=== PATIENT | female | born 1930 | race Caucasian/White ===

== ENCOUNTER 2016-11-14 04:16 | Inpatient (IN) | payer MEDICARE ==
[2016-11-14] VITALS (12 sets, daily range): BP systolic 106–157; BP diastolic 57–76; PULSE 66–78; RESP 18–20; O2SAT 88–96
[~2016-11-14] VITALS: Ht 167.6 cm; Wt 79.3 kg
[~2016-11-14 04:16] MED LIST: ASCO100089 PO; ATOR80TA PO; BLAC160C PO; CALC-243 PO; DABI110C PO; DULO30CA50 PO; EPIN0.3P2 IJ; ESOM40CA41 PO; GABA100C PO; INSU100I25 SQ; ISOS60TA2 PO; LISI-571 PO; METF1000 PO; METO50TA3 PO; MULT-1018 PO; NITR0.4T SL
--- NOTE | 2016-11-14 04:22 | ED.REPORT ---
HPI-Chest Pain 40 and Over Date of Service Nov 14, 2016 ED Provider: Kenny Braga MD Patient is a 86 year old female with a history of diabetes mellitus, hypertension, hyperlipidemia, prior CVA and coronary artery disease with prior MD, CABG 2x, and recent cardiac stent who presents to the ED via EMS after she awoke from sleep this morning with severe chest pain. The patient states that she took 4x nitroglycerin after onset of symptoms, which did not immediately improve her pain. The patient states that her chest pain waxed and waned, radiating to her back below her left shoulder. She describes her pain as a dull ache. Patient is a poor historian, one moment stating that it is "as if nothing ever happened" and the next complaining about ongoing back pain. Per patient she had a cardiac sent placed at [facility] 6 weeks ago. Her banking services officer is Dr. Malone, who she states referred her to [facility] to have the procedure done. Patient is on Pradaxa for anticoagulation. She denies any other symptoms at that time. Nursing Notes Stated Complaint: CHEST PAIN Chief Complaint: Chest Pain Nursing Notes Reviewed: Yes Allergies: Coded Allergies: pregabalin (Verified Allergy, Severe, facial swelling, 06/08/16) propranolol (Verified Allergy, Severe, SWELLING, 06/08/16) Penicillins (Verified Allergy, Intermediate, HIVES, 06/08/16) ezetimibe (Verified Allergy, Intermediate, MUSCLE ACHES, 06/08/16) simvastatin (Verified Allergy, Intermediate, MUSCULAR PAIN, 06/08/16) venom-honey bee (Verified Allergy, Unknown, 06/08/16) Scheduled Ascorbic Acid (Vitamin C) 1,000 Mg Tab.chew 1,000 MG PO DAILY Atorvastatin (Lipitor) 80 Mg Tablet 80 MG PO QPM Black Cohosh Root Extract (Black Cohosh) 160 Mg Capsule 40 MG PO DAILY Calcium Carbonate/Vitamin D3 (Calcium 600 + Vit D Tablet) 1 Each Tablet 2 EACH PO DAILY Dabigatran Etexilate Mesylate (Pradaxa) 110 Mg Capsule 220 MG PO DAILY Duloxetine (Duloxetine) 30 Mg Capsule.dr 30 MG PO DAILY Esomeprazole Magnesium (Nexium) 40 Mg Capsule.dr 40 MG PO DAILY Gabapentin (Neurontin) 100 Mg Capsule 100 MG PO BID Insulin Detemir (Levemir Flextouch) 100 Unit/1 Ml Insuln.pen 52-58 UNIT SQ HS Isosorbide MN ER (Isosorbide MN ER) 60 Mg Tab.er.24h 60 MG PO QAM Lisinopril (Lisinopril) 5 Mg Tablet 5 MG PO DAILY Metformin (Glucophage) 1,000 Mg Tablet 1,000 MG PO BID Metoprolol Tartrate (Metoprolol Tartrate) 50 Mg Tablet 100 MG PO BIDWM Multivitamin (Multi Vitamin Daily) 1 Each Tablet 1 EACH PO DAILY Nitroglycerin SL (Nitrostat) 0.4 Mg Tab.subl 0.4 MG SL Q5MIN Miscellaneous Medications Epinephrine (Epipen 2-Nile) 0.3 Mg/0.3 Ml Auto.injct 0.3 MG IJ General Time Seen by MD: 04:17 Chief Complaint Chest pain Hx Obtained From: Patient Unable to Obtain Hx: Patient condition (limited, patient is a poor historian) Arrived By: Ambulance Sudden in Onset?: No Onset Occurred: Just prior to arrival Symptom Duration: Since onset Location: : Chest left: Chest right Quality: Painful Radiation: : Back Severity: Current: No pain currently Severity: Maximum: Severe Recent Healthcare: No recent doctor visit, No recent hospitalization Similar Sx Previous: Yes Past Medical History Past Medical History paroxysmal atrial fibrillation Heart murmur due to critical aortic stenosis myocardial infarction cataracts dysphagia neuropathy Reports: Coronary artery disease, Diabetes mellitus, Hyperlipidemia, Hypertension, Stroke (stroke 1990- residual weakness on left) Reports: Depression Past Surgical History Right nephrectomy Aortic valve replacement CABG x2 Nephrectomy abdominal tumor removal cardiac stent ([facility], Sep 2016) Bilateral iliac angioplasty and bilateral iliac stenting. cardiac catheterization right knee surgery Reports: Hysterectomy Smoking History Former Smoker Social History Other Social History: Good social support, Local resident Ambulatory Status Independent Review of Systems Unable to Obtain ROS Patient condition (limited, patient is a poor historian) Cardiovascular: Reports: Chest pain, Denies: Palpitations Musculoskeletal: Reports: Back pain, Denies: Extremity pain Physical Exam Initial Vital Signs Vital Signs (First) Date Time Temp Pulse Resp B/P Pulse Ox O2 Delivery O2 Flow Rate FiO2 11/14/16 04:17 36.7 74 18 128/63 95 Room Air Initial VS: Reviewed, Vital signs normal Head / Eyes: Atraumatic, Normocephalic, PERRL ENT: Conjunctiva normal, No scleral icterus Skin: Warm, Dry, No cyanosis Neurologic: Alert, Oriented, Nonfocal Psychiatric: Mood/affect normal, Behavior normal, Normal thought content General/Constitutional: Awake, Alert, No acute distress Respiratory / Chest: Breath sounds NL, Breath sounds = bilat, No respiratory distress, No rales, No rhonchi, No wheezing Cardiovascular: Heart rate NL, Regular rhythm Heart Sounds / Murmur: Positive: Murmur present... (III/, holosystolic), Murmur shape... (Crescendo-decrescendo) Abdomen: Soft, Non-tender, No guarding, No rebound Neck: Supple, No JVD Lower Extremity / Pelvis / MS: No swelling, No edema Upper Extremity / MS: No swelling, No edema Interpretation & Diagnostics Lab Results Interpretation Result Diagram: 11/14/16 0420 11/14/16 0420 Test 11/14/16 04:20 White Blood Count 4.3th/mm3 (3.8-10.1) Red Blood Count 3.54mil/mm3 (3.90-5.20) Hemoglobin 11.8g/dL (12.0-15.6) Hematocrit 35.7% (35.0-46.0) Mean Corpuscular Volume 100.8fL (81-100) Mean Corpuscular Hemoglobin 33.3pg (27.0-35.0) Mean Corpuscular Hemoglobin Concent 33.1% (32.0-37.0) Red Cell Distribution Width 16.0% (12.3-15.4) Platelet Count 114bil/L (150-400) Neutrophils (%) (Auto) 49.9% (40-74) Lymphocytes (%) (Auto) 33.8% (14-46) Monocytes (%) (Auto) 15.4% (4-12) Eosinophils (%) (Auto) 0.7% (0-5) Basophils (%) (Auto) 0.2% (0-3) Activated Partial Thromboplast Time 38.3sec (22.8-33.0) Sodium Level 139mEq/L (134-144) Potassium Level 4.9mEq/L (3.5-5.2) Chloride Level 103mEq/L (97-108) Carbon Dioxide Level 21mmol/L (18-29) Blood Urea Nitrogen 22mg/dL (8-27) Creatinine 0.67mg/dL (0.57-1.00) Estimat Glomerular Filtration Rate 120mL/min (>59) Glucose Level 194mg/dL (60-99) Calcium Level 9.3mg/dL (8.5-10.1) Magnesium Level 1.4mg/dL (1.6-2.6) Total Bilirubin 0.7mg/dL (0.0-1.2) Aspartate Amino Transf (AST/SGOT) 21U/L (0-50) Alanine Aminotransferase (ALT/SGPT) 18U/L (0-32) Alkaline Phosphatase 48U/L (25-165) Troponin T 0.229ug/L (0.0-0.011) Total Protein 7.5g/dL (6.4-8.4) Albumin 4.5g/dL (3.4-5.0) Lab Results Interpretation: Related nonfasting blood sugar ECG Interpretation ECG Interpretation: Sinus rhythm, Rate 66 Consider left ventricular hypertrophy Time: 04:35 Interpreted by: ED physician Normal ECG Interpretation: No acute ischemic changes ECG Interpretation: Normal Sinus Rhythm, Rate 66 Time: 05:30 Interpreted by: ED physician X-Ray Chest Interpretation Chest Xray Interpretation: Impression: No acute cardiopulmonary process. View: Portable Interpretation / Wet Read by: Wet read ED physician Reviewed Previous Films: No change Re-Eval/Medical Decision Med Decision/Clinical Course 86-year-old with known coronary artery disease and previous stents presents with intermittent chest pain over the last 8 hours. The most recent episode started about 2 hours ago. It was relieved with nitroglycerin. EKG is negative 2. Her troponin is elevated at 0.229. She was given a heparin bolus and started on heparin drip. She was given an inch of nitroglycerin paste. Metoprolol was not used because of a previous allergic reaction to propranolol. Plavix was held pending cardiology consult because she was told not to take it by Dr. Coffman. Dr. Finley, banking services officer, but has yet to return the call. Her case was discussed with Dr. Rivera and she will be admitted to the hospitalist service. Dr. Stewart, oncoming ER physician, will talk to Dr. Guillen when he calls concerning beta blockers, Plavix, and admission consultations/cardiac catheterization. Source of Hx: Old records Time of Eval: 05:22 Patient Status: Condition improved Re-Evaluation/Progress Note: Rechecked the patient. She had a brief episode of chest while in the ED, which was improved by additional nitro. She is now pain free. Informed the patient of the elevated troponin and the need for her to be admitted to the hospital for additional care. Patient understands and agrees with this plan. All questions were addressed. Consultation #1: Referral / Consult Name: Franco Rivera MD Consulted With: Hospitalist Call Returned at: 05:34 Sales Account Manager: Will see patient, Agrees with eval, Agrees with plan, Accepts admit Note: Spoke with Dr. Rivera, hospitalist, who agrees to accept admit. Consultation #2: Referral / Consult Name: Blaise Finley MD Consulted With: Training Development Specialist: Agrees with eval, Agrees with plan Counseled Regarding: Diagnosis, Lab results, Need for admission Discharge & Departure Primary Impression: NSTEMI (non-ST elevated myocardial infarction) Additional Impression: Elevated troponin Disposition: ADMITTED TO HOSPITAL Discharge Condition All VS Reviewed: Yes Condition: Stable Referrals: Swathi Rangel (PCP) (Family) Crit Care Except Billable Proc Time Spent: 30-74 minutes Services Performed: Patient management by me, Time spent at bedside, Reviewing test results, Reviewing imaging, Discussing patient care, Documentation in record Critical Care Notes: One-on-one bedside care the patient with evolving MD started on multiple IV medications and admitted to PCC. Sunshineibnidia Attestation Portions of this note were transcribed by Justine Ramirez. I, Dr. Braga personally performed the history, physical exam and medical decision-making; I reviewed and confirmed the accuracy of the information in the transcribed note. Signed by: Anjana Yeager, 11/14/2016 0604 copies to: Swathi Rangel Howard L MD Nov 14, 2016 04:22 Justine Ramirez Nov 14, 2016 04:28
[2016-11-14 04:37] LABS: BASOPHILS % (AUTO) 0.2 % (0-3); EOSINOPHILS % (AUTO) 0.7 % (0-5); MONOCYTES % (AUTO) 15.4 % (4-12); Mean Corpuscular Hemoglobin 33.3 pg (27.0-35.0); Mean Corpuscular Volume 100.8 fL (81-100); NEUTROPHILS % (AUTO) 49.9 % (40-74); Platelet Count 114 bil/L (150-400)
[2016-11-14 05:01] LABS: Magnesium 1.4 mg/dL (1.6-2.6)
[2016-11-14 05:02] LABS: TROPONIN T 0.229 ug/L (0.0-0.011)
[2016-11-14] MEDS ORDERED: Heparin 25K Unit/500mL 0.45 NS 25,000 UNIT in IV Premix 1 EACH IV ONE (05:20)
[2016-11-14] MEDS ORDERED: Heparin 5,000 Unit/mL Inj IVPUSH ONE (05:20)
[2016-11-14] MEDS ORDERED: Nitroglycerin 2% 1 Gm Ointment TOPICAL ONE (05:20)
[2016-11-14] MEDS ORDERED: 0.9% Sodium Chloride 1,000 ML IV SCH (05:37)
[2016-11-14] MEDS ORDERED: Atropine 1 mg/10 mL (Code) Syringe IVPUSH PRN ×2 (05:40→06:15)
[2016-11-14] MEDS ORDERED: Senna-Docusate 8.6-50 mg Tablet PO PRN ×2 (05:40→06:15)
[2016-11-14] MEDS ORDERED: Polyethylene Glycol (PEG) 17 Gm Powder PO PRN ×2 (05:40→06:15)
[2016-11-14] MEDS ORDERED: Heparin 25K Unit/500mL 0.45 NS 25,000 UNIT in IV Premix 1 EACH IV SCH ×2 (05:40→06:15)
[2016-11-14] MEDS ORDERED: Alum-Mag Hydrox-Simeth 30 mL Suspension PO PRN ×2 (05:40→06:15)
[2016-11-14] MEDS ORDERED: Ondansetron 2 mg/mL 2 mL Inj IVPUSH PRN ×2 (05:40→06:15)
[2016-11-14] MEDS ORDERED: Glucose 40% Oral Gel 15 Gm Tube PO PRN ×2 (05:45→06:15)
--- NOTE | 2016-11-14 05:47 | PCM.HPMED ---
Subjective Date of Service Nov 14, 2016 Primary Provider: Admitting Physician: Primary Care Physician: Swathi Rangel Attending Physician: Admit Status: From the Emergency Department, Full Admit, [facility] Telemetry Chief Complaint: Acute chest pain History of Present Illness: Marie Bailey is a 86 year old female with Diabetes mellitus, hypertension, hyperlipidemia, prior CVA and coronary artery disease with prior MA, CABG 2x, and recent cardiac stent who presents to [facility] emergency department via EMS after she awoke from sleep this morning with severe chest pain. The patient states that she took 4x nitroglycerin after onset of symptoms, which did not immediately improve her pain. The patient states that her chest pain waxed and waned, radiating to her back below her left shoulder. She describes her pain as a dull ache. Associated symptoms includes mild nausea, diaphoresis and mild dyspnea. Similar to her previous chest pain with his heart attacks Patient states that she had a cardiac sent placed at [facility] weeks ago. She has been compliant with her medications. She felt fine after the procedure but felt sick again for the last 2 days Case discussed with Dr Braga, troponin elevated and Heparin drip initiated with plans to admit Review of Systems: Pertinent positives as noted in HPI. All other systems were reviewed and are negative Allergies Coded Allergies: pregabalin (Verified Allergy, Severe, facial swelling, 06/08/16) propranolol (Verified Allergy, Severe, SWELLING, 06/08/16) Penicillins (Verified Allergy, Intermediate, HIVES, 06/08/16) ezetimibe (Verified Allergy, Intermediate, MUSCLE ACHES, 06/08/16) simvastatin (Verified Allergy, Intermediate, MUSCULAR PAIN, 06/08/16) venom-honey bee (Verified Allergy, Unknown, 06/08/16) Home Medications From Marie Rodas [id number] 1930 10/31/2016 10:20 AM 09/[address] 30 MG CAP take 1 capsule by mouth daily EpiPen 2-Nile 0.3 mg/0.3 mL (1:1,000) injection,auto-injector inject 0.3 milliliter by intramuscular route once as needed for anaphylaxis Eye Drops instill one drop in each eye by opthalmic route once daily Levemir Flexpen 100 unit/mL (3 mL) solution subcutaneous insulin pen INJECT 52- 58 UNITS SUB-Q AT NIGHT Lipitor 40 mg tablet take 0.5 tablet by oral route every day lisinopril 5 mg tablet take 1 tablet by oral route every day METFORMIN HCL 1,000 MG TABLET take 1 tablet by mouth twice a day in THE MORNING AND EVENING for diabetes metoprolol tartrate 50 mg tablet take 2 tablet by oral route 2 times every day with meals multivitamin with minerals Cap 1 tablet daily Neurontin 300 mg capsule take 1 capsule by mouth 2 times a day Nexium 40 mg capsule,delayed release take 1 capsule by oral route as needed Pradaxa 150 mg capsule take 1 capsule by oral route 2 times every day PMH Paroxysmal atrial fibrillation Postherpetic neuralgia Hyperlipidemia Age related macular degeneration Hypertension Diabetes type with peripheral neuropathy Aortic Valve Stenosis S/P AVR (aortic valve replacement) Coronary disease s/p CABG Stroke . Surgical History Total Hysterectomy Right nephrectomy CABG x 3 right wrist surgery Aortic valve replacement Family History Family history of Diabetes Social History Hx Alcohol Use: No Hx Substance Use: No Hx Tobacco Use: Yes Smoking Status: Former Smoker Living Arrangement: with Family Exam Vital Signs Vital Sign - Last Date Time Temp Pulse Resp B/P Pulse Ox O2 Delivery O2 Flow Rate FiO2 11/14/16 05:00 69 18 140/66 95 Room Air 11/14/16 04:17 36.7 Exam General: Alert, Oriented X3, Cooperative, No acute Distress Eyes: PERRLA, Scleral Anicteric Mouth: Mouth Normal, Mucous Membranes Moist/[place] Neck: Supple, no Thyromegaly, trachea central. Chest & Lungs: Clear to auscultation & percussion, No adventitious breath sounds, no crackles, no wheeze Cardiovascular: Normal S1, Normal S2, No Rubs/Gallops, Regular Rate/Rhythm, loud systolic Murmur (No JVD, no peripheral edema) Pulses: Radial (present and equal), Dorsalis Pedi (present and equal) Abdomen: Soft, Non-tender, Non-distended, Normoactive bowel tones. Musculoskeletal: Unremarkable. Normal range of motion, no swollen or erythematous joints Extremities: No edema, no cyanosis, no clubbing. Skin: No rashes. Warm and dry, no erythematous areas Neurological: Grossly neurologically intact, Normal Speech, Sensation Intact Lymphatic: Lymph nodes Cervical and Axillary not palpable. Lab and Diagnostics Labs Laboratory Tests Test 11/14/16 04:20 White Blood Count 4.3th/mm3 (3.8-10.1) Red Blood Count 3.54mil/mm3 (3.90-5.20) Hemoglobin 11.8g/dL (12.0-15.6) Hematocrit 35.7% (35.0-46.0) Mean Corpuscular Volume 100.8fL (81-100) Mean Corpuscular Hemoglobin 33.3pg (27.0-35.0) Mean Corpuscular Hemoglobin Concent 33.1% (32.0-37.0) Red Cell Distribution Width 16.0% (12.3-15.4) Platelet Count 114bil/L (150-400) Neutrophils (%) (Auto) 49.9% (40-74) Lymphocytes (%) (Auto) 33.8% (14-46) Monocytes (%) (Auto) 15.4% (4-12) Eosinophils (%) (Auto) 0.7% (0-5) Basophils (%) (Auto) 0.2% (0-3) Activated Partial Thromboplast Time 38.3sec (22.8-33.0) Sodium Level 139mEq/L (134-144) Potassium Level 4.9mEq/L (3.5-5.2) Chloride Level 103mEq/L (97-108) Carbon Dioxide Level 21mmol/L (18-29) Blood Urea Nitrogen 22mg/dL (8-27) Creatinine 0.67mg/dL (0.57-1.00) Estimat Glomerular Filtration Rate 120mL/min (>59) Glucose Level 194mg/dL (60-99) Calcium Level 9.3mg/dL (8.5-10.1) Magnesium Level 1.4mg/dL (1.6-2.6) Total Bilirubin 0.7mg/dL (0.0-1.2) Aspartate Amino Transf (AST/SGOT) 21U/L (0-50) Alanine Aminotransferase (ALT/SGPT) 18U/L (0-32) Alkaline Phosphatase 48U/L (25-165) Troponin T 0.229ug/L (0.0-0.011) Total Protein 7.5g/dL (6.4-8.4) Albumin 4.5g/dL (3.4-5.0) Result Diagram: 11/14/1641911/14/16419 Assessment & Plan Marie Bailey is a 86 year old female with Diabetes mellitus, hypertension, hyperlipidemia, prior CVA and coronary artery disease with prior MA, CABG 2x, and recent cardiac stent who presents to [facility] emergency department via EMS after she awoke from sleep this morning with severe chest pain. 1. Non ST Elevation Myocardial infarction. Present on admission Recent stent placement therefore stent stenosis is a concern. Several risk factors for Acute coronary syndrome with previous MA and CABG as well as stenting. - monitor on telemetry - anticoagulation with Heparin drip - trending cardiac biomarkers - nothing by mouth - continue Aspirin for antiplatelet therapy - Cardiology consulted (Dr Braga will be contacting them) - may need cardiac cath given recent stent placement - continue Metoprolol and Statin 2. Diabetes Type 2 Presumed stable with no recent A1c - low correction Lispro algorithm - will plan to half dose of long actin insulin while NPO - holding Metformin - continue Gabapentin 300 mg bid 3. Hypertension Presumed stable - continue Lisinopril and Metoprolol 4. Paroxysmal Atrial fibrillation Previous stroke - good rate control currently - on Pradaxa which will be hold while in Heparin drip 5. Dyslipidemia - continue Lipitor 40 mg daily - Acetaminophen as needed for mild pain/fever/headache - Bowel regimen as needed - Antiemetic as needed Patient admitted under inpatient status with expected length of stay > 2 midnights for severity of present symptoms, complexities of treatment plan and risk for adverse event . Resuscitation Status: CPR: Attempt Resuscitation Franco Rivera MD Nov 14, 2016 05:46
--- NOTE | 2016-11-14 06:10 | NUR ---
Admission Pt transferred from ED via stretcher. Pt alert and orientated x3. IV in left hand patent and infusing. Pt complaining of 5/10 chest discomfort. Given nitroglycerine in the ED. Pt had no other concerns.
[2016-11-14] MEDS: 0.9% Sodium Chloride 1,000 ML IV SCH ×2 (07:59→19:36)
[2016-11-14] MEDS ORDERED: Insulin LISPRO 300 Unit/3 mL Inj SUBQ SCH (08:00)
[2016-11-14] MEDS: Insulin LISPRO 300 Unit/3 mL Inj SUBQ SCH ×4 (08:00→20:03)
[2016-11-14] MEDS: Sodium Chloride LOK Flush 10 mL Syringe IVFLUSH SCH ×2 (08:30→16:30)
[2016-11-14] MEDS ORDERED: Sodium Chloride LOK Flush 10 mL Syringe IVFLUSH SCH (08:30)
--- NOTE | 2016-11-14 08:47 | NUR ---
Pt arrived to [facility] from ER ~0600. C/O 12/17 left sided chest pain with radiation to back. Pt also has left anterior chest pain that worsens with palpation. NTG SL administered x1 with relief. NTP is also present anterior chest. Heparin and NS infusing via left hand PIV. VSS. Admission complete. Wallet and check book sent to safe.
--- NOTE | 2016-11-14 08:49 | DRSVH ---
PROCEDURE: X-RAY CHEST ONE VIEW, PORTABLE ([id number]) INDICATIONS: CHEST PAIN TECHNIQUE: One view of the chest was acquired. COMPARISON: [facility], CR, XR CHEST 1VW (PORTABLE), 04/10/2016, 0:16. FINDINGS: Surgical changes and devices: Post median sternotomy and there is fracture of the proximal sternal wi re. Lungs and pleura: No pleural effusions or pneumothorax. Lungs are clear, aside from mild atelectasi s or scarring at the left lung base. Mediastinum: Mediastinal contours appear normal. Heart size is normal. Bones and chest wall: No suspicious bony lesions. Overlying soft tissues appear unremarkable. IMPRESSION: Atelectasis versus scarring involving the left lung base otherwise no acute cardiopulmona ry process. Dictated by: Kirk Gonzalez [facility] Interpreted: Jillian Jerry MD on 11/14/2016 at 8:45 Transcribed by: CASI on 11/14/2016 at 8:49 Approved by: Jillian Jerry M.D. on 11/14/2016 at 11:48
--- NOTE | 2016-11-14 09:00 | NUR ---
Pt does not have her glasses with her and would appreciate verbal instructions for now. Host assist diet choices when able to eat.
[2016-11-14 09:27] LABS: Creatine Kinase 53 U/L (21-215)
--- NOTE | 2016-11-14 10:30 | NUR ---
Chest pain Earlier this morning she was complaining about 4/10 chest pain. A nitroglycerin tablet was given to her along with 1 tablet of Tylenol. Upon reassessment she said that her chest pain was gone. Care continues.
[2016-11-14 11:10] LABS: APPEARANCE,URINE HAZY (CLEAR,HAZY); COLOR,URINE STRAW (YELLOW); OCCULT BLOOD,URINE NEGATIVE (NEGATIVE); PH,URINE 6.5 (5.0-8.0); UROBILINOGEN,URINE NORMAL (NORMAL)
[2016-11-14 12:07] LABS: TROPONIN T 0.239 ug/L (0.0-0.011)
[2016-11-14] MEDS ORDERED: Magnesium Sulfate 50% Inj 3 GM in Dextrose 5% 100 ML IV ONE (12:25)
--- NOTE | 2016-11-14 15:03 | DRSVH ---
Formerly [facility] [address] [place] [address] Echocardiogram Report Name: LEONARDO ZUNIGA Study Date: 11/14/2016 Height: 66 in Hospital Exam Location: [facility] Weight: 178 lb Gender: Female BSA: 1.9 m2 : 1930 Age: 86 yrs BP: 142/69 mmHg Reason For Study: Chest pain Ordering Physician: HOSPITALIST [facility] Performed By: Justus Dallas Referring Physician: RAJAN ALICIA Interpretation Summary 1) Mild concentric left ventricular hypertrophy with normal size, wall motion, and systolic function (EF 65-70%). 2) Borderline dilated right ventricle with normal function. 3) Severe enlargement of the left atrium. 4) Grade 2 diastolic dysfunction (pseudonormalization) pattern, consistent with elevated filling pressures. 5) Bioprosthetic aortic valve, not well visualized. Mean transvalvular gradient is 22mmHG, which is expected for this kind of valve. 6) Mild atherosclerotic plaque(s) in the descending aorta. 7) Compared to the Echo 04/10/2016, severe stenosis aortic valve has been replaced by a bioprosthetic aortic valve as described above. Procedure: A two-dimensional transthoracic echocardiogram with color flow and Doppler was performed. The study quality was technically adequate. Comparison is made with the echocardiogram of 04/10/16. The patient was in normal sinus rhythm during the exam. Left Ventricle: The left ventricle is normal in size. There is mild concentric left ventricular hypertrophy. Proximal septal thickening is noted. The ejection fraction is estimated to be 65-70%. Left ventricular systolic function is normal. There are no focal wall motion abnormalities. Assessment of diastolic parameters suggests a pseudonormalization pattern, consistent with elevated filling pressures. Right Ventricle: The right ventricle is borderline dilated. The right ventricular systolic function is normal. Atria: The left atrium is severely dilated. Right atrial size is normal. The interatrial septum is intact with no evidence for an atrial septal defect. Mitral Valve: The mitral valve leaflets appear borderline thickened, but open well. There is mild mitral annular calcification. There is mild mitral regurgitation. Aortic Valve: There is a bioprosthetic aortic valve. The peak aortic velocity is 3.0 m/sec. The aortic valve mean gradient is 22 mmHg. This is likely an underestimate given peak velocity and mean gradient on prior echo. Tricuspid Valve: The tricuspid valve is normal. There is mild tricuspid regurgitation. The right ventricular systolic pressure is estimated at 39 mmHg assuming a right atrial pressure of 3 mm Hg. Pulmonic Valve: The pulmonic valve leaflets are thin and pliable; valve motion is normal. There is a trace or physiologic amount of pulmonic regurgitation. Great Vessels: The aortic root is not well visualized. The ascending aorta could not be visualized. The aortic arch is normal in size. Mild atherosclerotic plaque(s) in the descending aorta. The pulmonary artery is normal size. The IVC is of normal diameter and collapses greater than 50% with a sniff. This suggests a low right atrial pressure of 3 mm Hg. Pericardium/ Pleura There is no pericardial effusion. There is no pleural effusion. MMode/2D Measurements & Calculations LVIDd: 4.4 cm RA long axis Ao Arch Diam (Prox LVIDs: 2.1 cm LA A2 area: 24.5 cm Trans): 2.5 cm FS: 52.2 % LA A4 area: 25.9 cm RA area EPSS: 0.52 cm LA length (vol) IVSd: 1.1 cm : 11.8 cm LVPWd: 1.1 cm LA vol: 91.3 ml RA vol LA vol index : 26.9 ml RA : 48.0 ml/m2 : 14.1 mm2 LV sloan. diameter/BSA LV sys. diameter/BSA RVD1 (basal) TAPSE: 1.9 cm (cm/m^2): 2.3 (cm/m^2): 1.1 Doppler Measurements & Calculations Ao V2 max MV E max farhat MV E/A: 0.96 TR max farhat : 303.5 cm/sec : 109.0 cm/sec Med Peak E' Farhat : 298.7 cm/sec Ao max PG MV A max farhat TR max PG : 36.8 mmHg : 113.3 cm/sec E/E' med: 31.4 : 35.7 mmHg Ao mean PG Lat Peak E' Farhat PA V2 max : 21.5 mmHg : 93.2 cm/sec LVOT Max Farhat E/E' lat: 26.6 PA mean PG : 126.4 cm/sec E/e' average: 29.0 : 1.8 mmHg sev ratio: 0.41 MV dec time Ao V2 mean LV V1 max PG PA V2 mean : 0.30 sec : 223.2 cm/sec : 63.4 cm/sec Ao V2 VTI: 69.5 cm LV V1 VTI: 28.7 cm PA pr(Accel) : 44.7 mmHg Reading Physician:03:02 PM
[2016-11-15] MEDS: Sodium Chloride LOK Flush 10 mL Syringe IVFLUSH SCH ×2 (00:57→10:34)
[2016-11-15 03:00] VITALS: BP 156/80; PULSE 72; RESP 20; O2SAT 93
--- NOTE | 2016-11-15 04:47 | NUR ---
Ambulation Pt independent in the room. Able to walk to and from the bathroom and position self in bed without issue.
[2016-11-15 05:38] LABS: BASOPHILS % (AUTO) 0 % (0-3); EOSINOPHILS % (AUTO) 1.4 % (0-5); MONOCYTES % (AUTO) 18.6 % (4-12); Mean Corpuscular Hemoglobin 33.7 pg (27.0-35.0); Mean Corpuscular Volume 101.5 fL (81-100); NEUTROPHILS % (AUTO) 40.4 % (40-74); Platelet Count 93 bil/L (150-400)
[2016-11-15 06:17] VITALS: PULSE 80
[2016-11-15 08:00] VITALS: PULSE 78
[2016-11-15 08:19] VITALS: BP 153/75; PULSE 76; RESP 16; O2SAT 90
[2016-11-15] MEDS: Insulin LISPRO 300 Unit/3 mL Inj SUBQ SCH (09:00)
--- NOTE | 2016-11-15 09:19 | PCM.CHPCAR ---
Consult Subjective Date of service Nov 15, 2016 Date of admit Nov 14, 2016 at 06:19 Provider Requesting Consult Primary Care Physician Primary Care Physician: Swathi Rangel Chief Complaint Chest pain History of Present Illness Mrs Bailey is an 86-year-old woman with history of CAD status post CABG 2 (TOLLIVER to LAD, SVG to RCA 1996, redo CABG with aVR 2005 SVG to circumflex OM and LAD), tissue aortic valve replacement with recent (August 2016) valve and valve TAVR. Summary from discharge in August states grafts were patent. CVA, hyperlipidemia, hypertension, diabetes, paroxysmal atrial fibrillation, peripheral vascular disease with stenting of bilateral iliac arteries. Patient claims she had been feeling reasonably well until a few days ago where she had an episode of some chest pain while working in her garage. She rested and symptoms improved. Yesterday while resting she claims she just did not feel well. She woke up with 8-910 dull left parasternal chest pain with radiation to her scapula and left shoulder. She had mild dyspnea, and dizziness. She took nitroglycerin sublingually 3 without relief of symptoms and called a neighbor. Ambulance brought her to the hospital. She claims since admission he has not had any additional pain. She denies shortness of breath and lightheadedness dizziness or palpitations at this time. Claims she did not sleep well last night and would prefer to go home to sleep in her own bed. Review of Systems Review of Systems #General- patient has some fatigue, denies significant weight changes. Appetite is generally good. #HEENT- benign #Neck- patient feels "tickle in throat, denies swollen glands. #Chest- denies current dyspnea, chest wall pain. #Cardiovascular- no chest pain while she has been on the floor of the hospital. Denies palpitations. She admits to orthopnea at home without PND. She denies ankle edema or abdominal bloating. #Abdominal- denies abdominal pain, melena hematochezia, constipation or diarrhea. #-denies urgency or frequency, dysuria, vaginal symptoms #Neurologic- patient has weakness in her upper extremities and complains of numbness in her hands and feet. #Endocrine- positive history of diabetes on insulin and metformin, greatest in stable per patient no known thyroid disease. #Musculoskeletal- positive for joint aches and pains negative for swelling or redness #Psychiatric- denies current concerns #Integument -denies rash or lesion PMH Past Medical History CAD with CABG, TOLLIVER to LAD SVG to RCA 1996. Redo CABG with aVR 2005 with SVG to circumflex OM plus LAD. CVA 1996 Hyperlipidemia Hypertension Diabetes mellitus Paroxysmal AF Peripheral artery disease Aortic stenosis- Past Surgical History CABG 1996 with revision 2006 Bilateral iliac stents August 2016 Aortic valve replacement with recent valve and valve TAVR August 2016 at [facility] Right nephrectomy, benign S Total hysterectomy Bedside Blood Glucose: 256 Scheduled Ascorbic Acid (Vitamin C) 1,000 Mg Tab.chew 1,000 MG PO DAILY (Reported) Atorvastatin (Lipitor) 80 Mg Tablet 80 MG PO QPM (Reported) Black Cohosh Root Extract (Black Cohosh) 160 Mg Capsule 40 MG PO DAILY (Reported ) Calcium Carbonate/Vitamin D3 (Calcium 600 + Vit D Tablet) 1 Each Tablet 2 EACH PO DAILY (Reported) Dabigatran Etexilate Mesylate (Pradaxa) 110 Mg Capsule 220 MG PO DAILY (Reported ) Duloxetine (Duloxetine) 30 Mg Capsule.dr 30 MG PO DAILY (Reported) Esomeprazole Magnesium (Nexium) 40 Mg Capsule.dr 40 MG PO DAILY (Reported) Gabapentin (Neurontin) 100 Mg Capsule 100 MG PO BID (Reported) Insulin Detemir (Levemir Flextouch) 100 Unit/1 Ml Insuln.pen 52-58 UNIT SQ HS ( Reported) Isosorbide MN ER (Isosorbide MN ER) 60 Mg Tab.er.24h 60 MG PO QAM (Reported) Lisinopril (Lisinopril) 5 Mg Tablet 5 MG PO DAILY (Reported) Metformin (Glucophage) 1,000 Mg Tablet 1,000 MG PO BID (Reported) Metoprolol Tartrate (Metoprolol Tartrate) 50 Mg Tablet 50 MG PO BIDWM (Reported ) Multivitamin (Multi Vitamin Daily) 1 Each Tablet 1 EACH PO DAILY (Reported) Nitroglycerin SL (Nitrostat) 0.4 Mg Tab.subl 0.4 MG SL Q5MIN (Reported) Miscellaneous Medications Epinephrine (Epipen 2-Nile) 0.3 Mg/0.3 Ml Auto.injct 0.3 MG IJ (Reported) Current Inpatient Medications Current Medications Sodium Chloride 10 ml 10 ml GÓMEZ IVFLUSH; Start 11/14/16 at 08:30; Stop 11/14/16 at 08:30; Status DC Sodium Chloride 1,000 ml @ 80 mls/hr [id number] IV; Start 11/14/16 at 05:37; Stop 11/14/16 at 06:10; Status DC Aspirin 81 mg DAILY PO; Start 11/14/16 at 08:30; Stop 11/14/16 at 08:30; Status DC Al Hydrox/Mg Hydrox/Simethicone 30 ml Q6 PRN PO; Start 11/14/16 at 05:40; Stop 11/14/16 at 06:10; Status DC Ondansetron HCl 4-8 mg prn nausea Q4 PRN IVPUSH; Start 11/14/16 at 05:40; Stop 11/14/16 at 06:10; Status DC Senna 1 tablet BID PRN PO; Start 11/14/16 at 05:40; Stop 11/14/16 at 06:10; Status DC Polyethylene Glycol 17 gm DAILY PRN PO; Start 11/14/16 at 05:40; Stop 11/14/16 at 06:10; Status DC Acetaminophen 325 mg Q6 PRN PO; Start 11/14/16 at 05:40; Stop 11/14/16 at 06:10; Status DC Nitroglycerin 0.4 mg Q5MIN PRN SL; Start 11/14/16 at 05:40; Stop 11/14/16 at 06: 11; Status DC Morphine Sulfate 1-5 mg prn pain not relie... Q5M PRN IVPUSH; Start 11/14/16 at 05:40; Stop 11/14/16 at 06:11; Status DC Atropine Sulfate 0.5 mg Q5MIN PRN IVPUSH; Start 11/14/16 at 05:40; Stop 11/14/16 at 06:11; Status DC Insulin Human Lispro Nutritional Dose to be given pr... [facility] SUBQ; Start at 08:00; Stop 11/14/16 at 08:00; Status DC Nitroglycerin 0.4 mg Q5MIN PRN SL Last administered on 11/14/16 07:59; Admin Dose 0.4 MG; Start 11/14/16 at 06:15 Insulin Human Lispro Nutritional Dose to be given pr... [facility] SUBQ Last administered on 3/8/17at 20:03; Admin Dose 2 UNIT; Start 11/14/16 at 08:00 Sodium Chloride 1,000 ml @ 80 mls/hr [id number] IV Last administered on 11/14/16 19:36; Admin Dose 80 MLS/HR; Start 11/14/16 at 06:15 Sodium Chloride 10 ml GÓMEZ IVFLUSH Last administered on 11/15/16 00:57; Admin Dose 10 ML; Start 11/14/16 at 08:30 Aspirin 81 mg DAILY PO Last administered on 11/15/16 08:10; Admin Dose 81 MG; Start 11/14/16 at 08:30 Al Hydrox/Mg Hydrox/Simethicone 30 ml Q6H PRN PO; Start 11/14/16 at 06:15 Ondansetron HCl 4-8 mg prn nausea Q4H PRN IVPUSH; Start 11/14/16 at 06:15 Senna 1 tablet BID PRN PO; Start 11/14/16 at 06:15 Polyethylene Glycol 17 gm DAILY PRN PO; Start 11/14/16 at 06:15 Acetaminophen 325 mg Q6 PRN PO Last administered on 11/14/16 07:57; Admin Dose 325 MG; Start 11/14/16 at 06:15; Stop 11/14/16 at 16:36; Status DC Morphine Sulfate 1-5 mg prn pain not relie... Q5M PRN IVPUSH; Start 11/14/16 at 06:20 Atropine Sulfate 0.5 mg Q5MIN PRN IVPUSH; Start 11/14/16 at 06:15 Metoprolol Tartrate 50 mg BID PO Last administered on 11/15/16 08:10; Admin Dose 50 MG; Start 11/14/16 at 08:30 Acetaminophen 650 mg Q6H PRN PO Last administered on 11/15/16 05:36; Admin Dose 650 MG; Start 11/14/16 at 16:36 Allergies: Coded Allergies: pregabalin (Verified Allergy, Severe, facial swelling, 06/08/16) propranolol (Verified Allergy, Severe, SWELLING, 06/08/16) Penicillins (Verified Allergy, Intermediate, HIVES, 06/08/16) ezetimibe (Verified Allergy, Intermediate, MUSCLE ACHES, 06/08/16) simvastatin (Verified Allergy, Intermediate, MUSCULAR PAIN, 06/08/16) venom-honey bee (Verified Allergy, Unknown, 06/08/16) Family History Family History Father age 45 cause unknown Mother age 59 cause unknown Social History Occupation: retiredHx Alcohol Use: NoHx Substance Use: NoHx Tobacco Use: Yes Smoking Status: Former Smoker Living Arrangement: with Family Exam Vital Signs Vital Sign - Last Date Time Temp Pulse Resp B/P Pulse Ox O2 Delivery O2 Flow Rate FiO2 11/15/16 08:19 36.5 76 16 153/75 90 Room Air 11/14/16 12:13 2.00 Intake and Output 11/14/16 11/14/16 11/15/16 Cumulative From/Thru 15:00 23:00 07:00 11/14/16 04:17 - 11/15/16 06:22 Intake Total 800 ml 2695 ml 3495 ml Output Total 1300 ml 1600 ml 2900 ml Balance -500 ml 1095 ml 595 ml Intake Oral 800 ml 400 ml 1200 ml IV Total 2295 ml 2295 ml Output Urine Total 1300 ml 1600 ml 2900 ml # Bowel Movements 0 0 Objective #General-patient sitting by bedside eating breakfast in no apparent distress, breathing comfortably. #HEENT-eyes clear PERRLA, pharynx benign +dentures #Neck-supple without adenopathy or thyromegaly #Chest-chest is symmetrical without retractions, bi- basilar crackles noted. #Cardiovascular-heart is regular rate and rhythm moderate systolic murmur heard throughout precordium with radiation to neck bilateral carotids, no gallop or rub. No peripheral edema. JVP without significant distention. #Abdominal-soft nontender without mass, obese. #-deferred #Neurologic-alert and oriented 4, no obvious cranial nerve deficits. #Musculoskeletal- negative for swelling or redness to joints #Psychiatric-no mood appears appropriate. #Integument -no rash or lesion Lab and Diagnostics Labs Troponins 0.250, 0.263, 0.225. Total cholesterol 182, LDL 32.6, HDL 38, triglycerides 55.7 Result Diagram: 11/15/1630 11/15/16 0530 X-Rays, CTs and MRIs Echocardiogram mild LV hypertrophy, normal size and wall motions. EF 65-70%. Borderline RV dilation with normal function. Severe left atrial enlargement. Grade 2 diastolic dysfunction. AVR gradient of 22 mmHg not unusual for this replacement valve. Mild aortic plaque noted. Chest x-ray /radiologist summary atelectasis versus scarring left lung base otherwise no acute process. Assessment & Plan Assessment Mrs Bailey is an 86-year-old woman with history of CAD status post CABG 2 (TOLLIVER to LAD, SVG to RCA 1996, redo CABG with aVR 2005 SVG to circumflex OM and LAD), tissue aortic valve replacement with recent (August 2016) valve and valve TAVR. Summary from discharge in August states grafts were patent. CVA, hyperlipidemia, hypertension, diabetes, paroxysmal atrial fibrillation, peripheral vascular disease with stenting of bilateral iliac arteries. She has been resting relatively comfortably without further chest pain since admission. Troponins are elevated and trending down #NSTEMI. -Patient appears stable at this time. Elevated troponin is most likely secondary to microvascular disease. Recent cardiac catheterization from August showed widely patent coronary grafts. Patient will benefit from continued medical management at this point and may be discharged home. Continue aspirin therapy and otherwise resume home meds for secondary prevention. #Hypertriglyceridemia-triglycerides at 557. Add fenofibrate 45 mg by mouth daily. Resuscitation Status: CPR: Attempt Resuscitation Napoleon Lopez PA-C Nov 15, 2016 09:19
[2016-11-15] MEDS: 0.9% Sodium Chloride 1,000 ML IV SCH (10:30)
--- NOTE | 2016-11-15 11:31 | CONS ---
[address] [address] CONSULTATION REPORT PATIENT: LEONARDO ZUNIGA : 1930 MR#: [id number] ADMIT: 11/14/2016 JOB ID: [id number] DATE OF SERVICE: 11/15/2016 REQUESTING PHYSICIAN: Thais Gandara MD REASON FOR EVALUATION: Elevated troponin. HISTORY OF PRESENT ILLNESS: I saw and examined the patient. Please see the notes by Napoleon Lopez PA-C for details. IMPRESSION: 1. Non-ST elevated myocardial infarction. 2. Status post transcatheter aortic valve replacement at [facility] in August 2016. 3. Status post coronary artery bypass surgery x2 with TOLLIVER graft to LAD and SVG to the RCA in 1996 and redo coronary artery bypass surgery with SVG to the OM and SVG to the LAD and bioprosthetic aortic valve replacement in 2005. 4. Diabetes mellitus with hemoglobin A1c 7.1. 5. Hypertension. 6. Dyslipidemia with high triglycerides. 7. Peripheral artery disease status post bilateral common iliac artery stents. PLAN: I have personally reviewed her coronary angiogram from 2015. She has patent saphenous vein graft to the right coronary artery, patent saphenous vein graft to the LAD, and patent saphenous vein graft to the obtuse marginal. All those grafts are of good quality and do not have any degenerative change. I believe that her acute coronary event at this time involves a smaller branch as there is no ST change on her EKG and there is no wall motion abnormality on the echocardiogram. The patient could be discharged from the hospital and follow up with Dr. Malone in 2-4 weeks. I would recommend adding aspirin 81 mg once daily and fenofibrate to her current medical regimen. Fenofibrate is in order to lower her triglycerides as she has triglyceride of 557 on November 15, 2016. [facility]
--- NOTE | 2016-11-15 12:05 | PCM.DIMED ---
Arpit Main DO 11/15/16 1205: Discharge Instructions Date of Service Nov 15, 2016 Dates of Hospitalization Nov 14, 2016 at 06:19 Discharge Diagnosis Discharge Diagnosis NSTEMI Medication Instructions Continue to take your medications as previously prescribed. We are adding Fenofibrates for your triglycerides to be taken daily You also need to take Aspirin 81mg daily. Diet Heart Healthy, Diabetic Activity Limited until seen by PCP Call your provider Fever or Chills, Shortness of breath, Chest pain Patient Instructions You admitted due to concerns that you have another heart attack. He will evaluated by cardiology to determine the receptor to home under the condition call 911 for any additional chest pain. He developed shortness of breath, chest pain, dizziness or lightheadedness, nausea or vomiting please see medical attention immediately. Please follow-up with your primary care doctor within 1 week. Appointments scheduled with Dr. Malone on December 17 at 1:45 in the afternoon for follow-up. Nursing will give you an appointment reminder prior to discharge. Follow-up Provider: Swathi Rangel Follow-up with PCP in: 1 week Thais Gandara MD 11/15/16 1541: Discharge Instructions Attending's Statement Agree with above. Arpit Main DO Nov 15, 2016 12:05 Thais Gandara MD Nov 15, 2016 15:41
[2016-11-15] MEDS ORDERED: FENO67CA PO (12:16)
--- NOTE | 2016-11-15 13:21 | NUR ---
Discharge Patient received AM meds this AM with no difficulty. Refused insulin stating "I only take that at night." Tele was removed and IV was discontinued. Pt was provided with a discharge packet including new medication information, prescriptions, and education on current condition. Information was gone over with the patient as well as the patient's two family members. Pt verbalized understanding of information. Pt left the facility at 1300 with two family members with the help of a staff member. All personal belongings were returned to patient with documentation signed.
--- NOTE | 2016-11-15 15:51 | NUR ---
Social Work: Initial Assessment/Discharge D: Per EMR review, pt is an 86 year old female admitted for acs/nonstemi. Pt is [employer] with no LTC insurance or VA benefits. PCP is LACY Nunez. NOK is Apryl Nelson, friend, . Advanced directives information declined from ASTHMA EDUCATOR. Readmit score is moderate, 5/8. ASTHMA EDUCATOR met with pt at bedside. Sw role explained and contact info provided. See initial assessment. Pt states she lives on Saturday. She is I with ADLs and uses no DME. Pt has never had HH or USP. She has no concerns about discharge home today and is very eager to leave. Pt states her friend will transport. A: Pt who is I at baseline. P: Anticipate pt to discharge home today via POV; ASTHMA EDUCATOR to continue to follow. CRISTHIAN Don Addendum: 11/15/16 at 1554 by PEEWEE MANZO Amended: Links added.
--- NOTE | 2016-11-16 18:10 | PCM.DC.MED ---
Discharge Summary Date of Service Nov 16, 2016 Dates of Hospitalization Date of Hospital Admission Nov 14, 2016 at 06:19 Date of Discharge: Nov 16, 2016 Providers: Admitting Physician: Franco Rivera MD Primary Care Physician: Swathi Rangel Attending Physician: Franco Rivera MD Diagnosis at Time of Discharge Diagnosis at Time of Discharge NSTEMI Procedures XRay, CTs & MRIs Chest X-ray IMPRESSION: Atelectasis versus scarring involving the left lung base otherwise no acute cardiopulmonary process. Dictated by: Kirk Gonzalez [facility] Interpreted: Jillian Jerry MD on 11/14/2016 at 8:45 Brief History Mrs Bailey is an 86-year-old woman with history of CAD status post CABG 2 (TOLLIVER to LAD, SVG to RCA 1996, redo CABG with aVR 2005 SVG to circumflex OM and LAD), tissue aortic valve replacement with recent (August 2016) valve and valve TAVR. Summary from discharge in August grafts were patent. CVA, hyperlipidemia, hypertension, diabetes, paroxysmal atrial fibrillation, peripheral vascular disease with stenting of bilateral iliac arteries. Patient claims she had been feeling reasonably well until a few days ago where she had an episode of some chest pain while working in her garage. She rested and symptoms improved. Yesterday while resting she claims she just did not feel well. She woke up with 8-910 dull left parasternal chest pain with radiation to her scapula and left shoulder. She had mild dyspnea, and dizziness. She took nitroglycerin sublingually 3 without relief of symptoms and called a neighbor. Ambulance brought her to the hospital. She claims since admission he has not had any additional pain. She denies shortness of breath and lightheadedness dizziness or palpitations at this time. Claims she did not sleep well last night and would prefer to go home to sleep in her own bed. Hospital Course Marie Bailey is a 86 year old female with Diabetes mellitus, hypertension, hyperlipidemia, prior CVA and coronary artery disease with prior HI, CABG 2x, and recent cardiac stent who presents to [facility] emergency department via EMS after she awoke from sleep this morning with severe chest pain. 1. Non ST Elevation Myocardial infarction. Present on admission Recent stent placement therefore stent stenosis is a concern. Several risk factors for Acute coronary syndrome with previous HI and CABG as well as stenting. - monitor on telemetry - anticoagulation with Heparin drip - biomarkers trending down, 0.225 was last - continue Aspirin for antiplatelet therapy - continue Metoprolol and Statin - Cardiology signed off - Script for fenofibrate 2. Diabetes Type 2 Presumed stable with no recent A1c - low correction Lispro algorithm - restarted metformin - continue Gabapentin 300 mg bid 3. Hypertension Presumed stable - continue Lisinopril and Metoprolol 4. Paroxysmal Atrial fibrillation Previous stroke - good rate control currently - on Pradaxa which will be hold while in Heparin drip 5. Dyslipidemia - continue Lipitor 40 mg daily - Acetaminophen as needed for mild pain/fever/headache - Bowel regimen as needed - Antiemetic as needed Patient discharged in stable condition with understanding of plan moving forward. Will return for new chest pain. Follow-up plan repeated back by patient. Exam Vital Signs (Last) Date Time Temp Pulse Resp B/P Pulse Ox O2 Delivery O2 Flow Rate FiO2 11/15/16 09:48 11/15/16 08:19 36.5 76 16 153/75 90 11/14/16 12:13 2.00 Exam General: Alert, Oriented X3, Cooperative, No acute Distress Eyes: PERRLA, Scleral Anicteric Mouth: Mouth Normal, Mucous Membranes Moist/Zinc Neck: Supple, no Thyromegaly, trachea central. Chest & Lungs: Clear to auscultation & percussion, No adventitious breath sounds, no crackles, no wheeze Cardiovascular: Normal S1, Normal S2, No Rubs/Gallops, Regular Rate/Rhythm, loud systolic Murmur (No JVD, no peripheral edema) Pulses: Radial (present and equal), Dorsalis Pedi (present and equal) Abdomen: Soft, Non-tender, Non-distended, Normoactive bowel tones. Musculoskeletal: Unremarkable. Normal range of motion, no swollen or erythematous joints Extremities: No edema, no cyanosis, no clubbing. Skin: No rashes. Warm and dry, no erythematous areas Neurological: Grossly neurologically intact, Normal Speech, Sensation Intact Lymphatic: Lymph nodes Cervical and Axillary not palpable. Test 11/14/16 04:20 11/14/16 11:00 11/14/16 11:05 11/14/16 23:25 Hemoglobin A1c 7.1% (4.8-5.6) Total Creatine Kinase 62U/L (21-215) Creatine Kinase MB 6.6ng/mL (0.0-5.3) Creatine Kinase MB % 10.6% (0.0-5.0) Urine Color Straw (YELLOW) Urine Appearance Hazy (CLEAR,HAZY) Urine pH 6.5 (5.0-8.0) Urine Specific [place] 1.010 (1.003-1.035) Urine Protein Negativemg/dL (NEG,TRACE) Urine Glucose (UA) Negativemg/dL (NEGATIVE) Urine Ketones Negativemg/dL (NEGATIVE) Urine Occult Blood Negative (NEGATIVE) Urine Nitrite Negative (NEGATIVE) Urine Bilirubin Negative (NEGATIVE) Urine Urobilinogen Normalmg/dL (NORMAL) Urine Leukocyte Esterase Negative (NEGATIVE) Urine RBC 0-2/hpf (0-2) Urine WBC 0-5/hpf (0-5) Urine Epithelial Cells Occasional/hpf (NONE-MOD) Urine Crystals None seen (NONE SEEN) Urine Bacteria Few/hpf (NONE-FEW) Urine Hyaline Casts None/lpf (NONE) Urine Granular Casts None seen (NONE SEEN) Urine Waxy Casts None seen (NONE SEEN) Urine Red Blood Cell Casts None seen (NONE SEEN) Urine White Blood Cell Casts None seen (NONE SEEN) Urine Mucus None seen (None Seen) Urine Trichomonas None seen (NONE SEEN) Urine Yeast None (NONE SEEN) Urinalysis Comment None Urine Culture Reflexed Not indicated Troponin T 0.225ug/L (0.0-0.011) Test 11/15/16 05:30 White Blood Count 2.9th/mm3 (3.8-10.1) Red Blood Count 3.32mil/mm3 (3.90-5.20) Hemoglobin 11.2g/dL (12.0-15.6) Hematocrit 33.7% (35.0-46.0) Mean Corpuscular Volume 101.5fL (81-100) Mean Corpuscular Hemoglobin 33.7pg (27.0-35.0) Mean Corpuscular Hemoglobin Concent 33.2% (32.0-37.0) Red Cell Distribution Width 15.8% (12.3-15.4) Platelet Count 93bil/L (150-400) Neutrophils (%) (Auto) 40.4% (40-74) Lymphocytes (%) (Auto) 39.3% (14-46) Monocytes (%) (Auto) 18.6% (4-12) Eosinophils (%) (Auto) 1.4% (0-5) Basophils (%) (Auto) 0% (0-3) Activated Partial Thromboplast Time 50.1sec (22.8-33.0) Sodium Level 145mEq/L (134-144) Potassium Level 4.7mEq/L (3.5-5.2) Chloride Level 108mEq/L (97-108) Carbon Dioxide Level 17mmol/L (18-29) Blood Urea Nitrogen 14mg/dL (8-27) Creatinine 0.70mg/dL (0.57-1.00) Estimat Glomerular Filtration Rate 114mL/min (>59) Glucose Level 191mg/dL (60-99) Calcium Level 9.6mg/dL (8.5-10.1) Magnesium Level 1.9mg/dL (1.6-2.6) Total Bilirubin 0.6mg/dL (0.0-1.2) Aspartate Amino Transf (AST/SGOT) 28U/L (0-50) Alanine Aminotransferase (ALT/SGPT) 20U/L (0-32) Alkaline Phosphatase 51U/L (25-165) Total Protein 7.0g/dL (6.4-8.4) Albumin 4.3g/dL (3.4-5.0) Triglycerides Level 557mg/dL (0-149) Cholesterol Level 182mg/dL (100-199) LDL Cholesterol, Calculated 32.600mg/dL (0-99) VLDL Cholesterol 111.400mg/dL HDL Cholesterol 38mg/dL (>39) Cholesterol/HDL Ratio 4.79 (0.0-4.4) Discharge Medications Discharge Medications Ascorbic Acid (Vitamin C) 1,000 Mg Tab.chew 1,000 MG PO DAILY (Reported) Atorvastatin (Lipitor) 80 Mg Tablet 80 MG PO QPM (Reported) Black Cohosh Root Extract (Black Cohosh) 160 Mg Capsule 40 MG PO DAILY (Reported ) Calcium Carbonate/Vitamin D3 (Calcium 600 + Vit D Tablet) 1 Each Tablet 2 EACH PO DAILY (Reported) Dabigatran Etexilate Mesylate (Pradaxa) 110 Mg Capsule 220 MG PO DAILY (Reported ) Duloxetine (Duloxetine) 30 Mg Capsule.dr 30 MG PO DAILY (Reported) Esomeprazole Magnesium (Nexium) 40 Mg Capsule.dr 40 MG PO DAILY (Reported) Fenofibrate,Micronized (Fenofibrate) 67 Mg Capsule 67 MG PO DAILY Prescribed by: ARPIT SMART DO Gabapentin (Neurontin) 100 Mg Capsule 100 MG PO BID (Reported) Insulin Detemir (Levemir Flextouch) 100 Unit/1 Ml Insuln.pen 52-58 UNIT SQ HS ( Reported) Isosorbide MN ER (Isosorbide MN ER) 60 Mg Tab.er.24h 60 MG PO QAM (Reported) Lisinopril (Lisinopril) 5 Mg Tablet 5 MG PO DAILY (Reported) Metformin (Glucophage) 1,000 Mg Tablet 1,000 MG PO BID (Reported) Metoprolol Tartrate (Metoprolol Tartrate) 50 Mg Tablet 50 MG PO BIDWM (Reported ) Multivitamin (Multi Vitamin Daily) 1 Each Tablet 1 EACH PO DAILY (Reported) Nitroglycerin SL (Nitrostat) 0.4 Mg Tab.subl 0.4 MG SL Q5MIN (Reported) Miscellaneous Medications Epinephrine (Epipen 2-Nile) 0.3 Mg/0.3 Ml Auto.injct 0.3 MG IJ (Reported) Additional med instructions Continue to take your medications as previously prescribed. We are adding Fenofibrates for your triglycerides to be taken daily You also need to take Aspirin 81mg daily. Followup Plan Discharge Diet: Heart Healthy, Diabetic Discharge Activity: Limited until seen by PCP Patient Instructions You admitted due to concerns that you have another heart attack. He will evaluated by cardiology to determine the receptor to home under the condition call 911 for any additional chest pain. He developed shortness of breath, chest pain, dizziness or lightheadedness, nausea or vomiting please see medical attention immediately. Please follow-up with your primary care doctor within 1 week. Appointments scheduled with Dr. Malone on December 17 at 1:45 in the afternoon for follow-up. Nursing will give you an appointment reminder prior to discharge. Follow-up Provider: Swathi Rangel Follow-up with PCP in: 1 week Attending Statement Patient seen and examined by myself and agree with above plan Arpit Smart DO Nov 16, 2016 18:09 Thais Gandara MD Nov 16, 2016 18:57
== END 2016-11-15 13:12 | disposition home or self-care (01) | DRG 281 ==
LOC: SED 04:16 → PCC 06:19
PROVIDERS: ADMIT Hospitalist; ATTEND Hospitalist
DX: I21.4 Non-ST elevation (NSTEMI) myocardial infarction (principal); I69.954 Hemiplegia and hemiparesis following unspecified cerebrovascular disease affecting left non-dominant side; E11.9 Type 2 diabetes mellitus without complications; I10 Essential (primary) hypertension; E78.5 Hyperlipidemia, unspecified; I25.10 Atherosclerotic heart disease of native coronary artery without angina pectoris; I73.9 Peripheral vascular disease, unspecified; I48.0 Paroxysmal atrial fibrillation; Z98.61 Coronary angioplasty status; Z87.891 Personal history of nicotine dependence; I25.2 Old myocardial infarction; Z95.2 Presence of prosthetic heart valve; Z79.4 Long term (current) use of insulin

== ENCOUNTER 2017-03-01 10:25 | Day surgery (SDC) | payer MEDICARE ==
[~2017-03-01] VITALS: Ht 167.6 cm; Wt 77.1 kg
[~2017-03-01 10:25] MED LIST changes: -ASCO100089 PO; -CALC-243 PO; +FENO67CA PO; -ISOS60TA2 PO
[2017-03-01 11:02] VITALS: BP 126/45; PULSE 76; RESP 16; O2SAT 94
--- NOTE | 2017-03-01 15:49 | PCM.PROC ---
Procedure Note Date of Service: Mar 01, 2017 Pre Procedure Diagnosis: RIGHT SI joint injection canceled secondary to finger stick glucose 291. Follow-up with PCP today Jerry Mock MD * Pain Management * Anesthesiology Jerry Mock MD Mar 01, 2017 15:49
== END 2017-03-01 23:59 | disposition home or self-care (01) ==
LOC: END 10:25
PROVIDERS: ATTEND Anesthesiology Pain Medicine
DX: M46.1 Sacroiliitis, not elsewhere classified (principal); Z53.09 Procedure and treatment not carried out because of other contraindication; E11.65 Type 2 diabetes mellitus with hyperglycemia; Z79.4 Long term (current) use of insulin; Z79.84 Long term (current) use of oral hypoglycemic drugs

== ENCOUNTER 2017-06-07 12:25 | Emergency (ER) | payer MEDICARE ==
[~2017-06-07] VITALS: Ht 167.6 cm; Wt 80.9 kg
[2017-06-07 12:27] VITALS: BP 103/66; PULSE 72; RESP 16; O2SAT 94
--- NOTE | 2017-06-07 13:40 | ED.REPORT ---
HPI-Dizziness / Weakness Date of Service Jun 07, 2017 ED Provider: Haile Dash PA-C Brenda is an 86-year-old female with a history of [place], CVA, DM presenting to the emergency department with a chief complaint of dizziness. Patient reports a headache overnight and feeling somewhat unusual upon waking this morning 8 AM. She clint and dressed without incident however when she walked into the living room she states "it was like I was drunk" and had to support herself against the wall. She describes an unsteadiness. She denies the room spinning. She checked her blood sugar at that time and noted to be 376. This episode lasted approximately 10 minutes it has been steadily improving since then. Consulted with her primary care provider who advised her to present to the emergency department. She is said presents to the urgent care where she received a brief workup and was forwarded to the emergency department. She denies chest pain, shortness of breath, palpitations, abdominal pain, vomiting, diarrhea, fever, chills. She denies trauma. She attributes her symptoms to a recent change in her diabetes medication. The patient is taking Pradaxa. Nursing Notes Stated Complaint: DIZZYNESS Chief Complaint: Neuro Symptoms/ Deficits Nursing Notes Reviewed: Yes Allergies: Coded Allergies: pregabalin (Verified Allergy, Severe, facial swelling, 06/07/17) propranolol (Verified Allergy, Severe, SWELLING, 06/07/17) Penicillins (Verified Allergy, Intermediate, HIVES, 06/07/17) ezetimibe (Verified Allergy, Intermediate, MUSCLE ACHES, 06/07/17) simvastatin (Verified Allergy, Intermediate, MUSCULAR PAIN, 06/07/17) venom-honey bee (Verified Allergy, Unknown, 06/07/17) Scheduled Atorvastatin (Lipitor) 80 Mg Tablet 80 MG PO QPM Black Cohosh Root Extract (Black Cohosh) 160 Mg Capsule 40 MG PO DAILY Dabigatran Etexilate Mesylate (Pradaxa) 110 Mg Capsule 220 MG PO DAILY Duloxetine (Duloxetine) 30 Mg Capsule.dr 30 MG PO DAILY Esomeprazole Magnesium (Nexium) 40 Mg Capsule.dr 40 MG PO DAILY Fenofibrate,Micronized (Fenofibrate) 67 Mg Capsule 67 MG PO DAILY Gabapentin (Neurontin) 100 Mg Capsule 100 MG PO BID Insulin Detemir (Levemir Flextouch) 100 Unit/1 Ml Insuln.pen 52-58 UNIT SQ HS Lisinopril (Lisinopril) 5 Mg Tablet 5 MG PO DAILY Metformin (Glucophage) 1,000 Mg Tablet 1,000 MG PO BID Metoprolol Tartrate (Metoprolol Tartrate) 50 Mg Tablet 50 MG PO BIDWM Multivitamin (Multi Vitamin Daily) 1 Each Tablet 1 EACH PO DAILY Nitroglycerin SL (Nitrostat) 0.4 Mg Tab.subl 0.4 MG SL Q5MIN Miscellaneous Medications Epinephrine (Epipen 2-Nile) 0.3 Mg/0.3 Ml Auto.injct 0.3 MG IJ General Time Seen by MD: 12:45 Chief Complaint Dizzy Risk Factors NIH Stroke Scale Level of Consciousness: Alert and responsive (0) Ask Month & Age: Both questions right (0) Open/Close Eyes/Hand Egg Setter: Performs both tasks (0) Horizontal EO Movements: None (0) Visual Velásquez: Partial hemianopsia (1) Facial Palsy: Normal symmetry (0) Right Arm Motor Drift (10s): No drift 10 sec (0) Left Arm Motor Drift (10s): No drift 10 sec (0) Right Leg Motor Drift (5s): Drift, not touch bed (1) Left Leg Motor Drift (5s): Drift, not touch bed (1) Limb Ataxia FNF/Heel-Parks: Untestable (0) Sensation (Arms/Legs/Face): Pinprick less sharp (1) Language Aphasia: No aphasia, normal (0) Dysarthria: No dysarthria, normal (0) Extinction/Inattention: No exctinct/inattent (0) NIHSS Score: 3 Time NIHSS Performed: 13:47 Date NIHSS Performed: Jun 07, 2017 Past Medical History Past Medical History paroxysmal atrial fibrillation Heart murmur due to critical aortic stenosis myocardial infarction cataracts dysphagia neuropathy Reports: Coronary artery disease, Diabetes mellitus, Hyperlipidemia, Hypertension, Stroke Reports: Depression Past Surgical History Right nephrectomy Aortic valve replacement CABG x2 Nephrectomy abdominal tumor removal cardiac stent ([place], Sep 2016) Bilateral iliac angioplasty and bilateral iliac stenting. cardiac catheterization right knee surgery Reports: Hysterectomy Smoking History Former Smoker Social History Other Social History: Good social support, Local resident Ambulatory Status Independent Review of Systems General: Denies fever, chills, malaise. HEENT: Admits headache Respiratory: Denies dyspnea, cough, shortness of breath, wheezing. Cardiovascular: Denies chest pain, palpitations. Gastrointestinal: Denies vomiting, diarrhea, abdominal pain. Otherwise as noted in HPI. Physical Exam General: Well appearing, well developed, well nourished, no acute distress. Head: Atraumatic, normocephalic. Eyes: No scleral icterus or injection. No discharge. Vision grossly intact. ENT: Voice clear, hearing grossly intact. Respiratory: Regular rate and rhythm. No respiratory distress. No increased work of breathing, speaks in complete sentences. Cardiovascular: Regular rate and rhythm, without murmur, gallop or rub. No pedal edema. Skin: Warm and dry. Neurological: Rapid alternating motions are limited with both hands. Normal finger-nose. Patient cannot perform heel-parks due to back and hip pain. Negative pronator drift. Slight leg drift bilaterally. Peripheral vision deficit suspected. Reduced sensation to sharp touch on the left side of face and upper left upper extremity. Cranial nerves: Vision grossly intact, PERRL, EOMI. Facial motion symmetrical, sensation to light touch over forehead, maxilla and mandible present and equal B /L. Voice clear and fluent, no drooling/pooling of saliva, uvula rises midline. Psychological: Alert and oriented. Speech appropriate, linear and logical. Behavior appropriate. Initial Vital Signs Vital Signs (First) Date Time Temp Pulse Resp B/P Pulse Ox O2 Delivery O2 Flow Rate FiO2 06/07/17 12:27 36.5 72 16 103/66 94 Room Air Normal Interpretation & Diagnostics Lab Results Interpretation Result Diagram: 06/07/17 1510 06/07/17 1510 Test 06/07/17 15:10 06/07/17 15:35 White Blood Count 4.1th/mm3 (3.8-10.1) Red Blood Count 3.06mil/mm3 (3.90-5.20) Hemoglobin 10.9g/dL (12.0-15.6) Hematocrit 32.6% (35.0-46.0) Mean Corpuscular Volume 106.5fL (81-100) Mean Corpuscular Hemoglobin 35.6pg (27.0-35.0) Mean Corpuscular Hemoglobin Concent 33.4% (32.0-37.0) Red Cell Distribution Width 17.7% (12.3-15.4) Platelet Count 116bil/L (150-400) Neutrophils (%) (Auto) 48.8% (40-74) Lymphocytes (%) (Auto) 31.5% (14-46) Monocytes (%) (Auto) 18.8% (4-12) Eosinophils (%) (Auto) 0.5% (0-5) Basophils (%) (Auto) 0.2% (0-3) Sodium Level 137mEq/L (134-144) Potassium Level 4.6mEq/L (3.5-5.2) Chloride Level 99mEq/L (97-108) Carbon Dioxide Level 19mmol/L (18-29) Blood Urea Nitrogen 27mg/dL (8-27) Creatinine 0.83mg/dL (0.57-1.00) Estimat Glomerular Filtration Rate 94mL/min (>59) Glucose Level 142mg/dL (60-99) Calcium Level 9.4mg/dL (8.5-10.1) Total Bilirubin 0.6mg/dL (0.0-1.2) Aspartate Amino Transf (AST/SGOT) 17U/L (0-50) Alanine Aminotransferase (ALT/SGPT) 15U/L (0-32) Alkaline Phosphatase 54U/L (25-165) Troponin T < 0.010ug/L (0.0-0.011) Total Protein 8.2g/dL (6.4-8.4) Albumin 4.3g/dL (3.4-5.0) Hold Alfaro Top Tube Received (Received) Urine Color Yellow (YELLOW) Urine Appearance Clear (CLEAR,HAZY) Urine pH 5.5 (5.0-8.0) Urine Specific [place] 1.020 (1.003-1.035) Urine Protein 30mg/dL (NEG,TRACE) Urine Glucose (UA) Negativemg/dL (NEGATIVE) Urine Ketones Negativemg/dL (NEGATIVE) Urine Occult Blood Negative (NEGATIVE) Urine Nitrite Negative (NEGATIVE) Urine Bilirubin Negative (NEGATIVE) Urine Urobilinogen Normalmg/dL (NORMAL) Urine Leukocyte Esterase Negative (NEGATIVE) Urine RBC 0-2/hpf (0-2) Urine WBC 0-5/hpf (0-5) Urine Epithelial Cells Moderate/hpf (NONE-MOD) Urine Crystals None seen (NONE SEEN) Urine Bacteria Few/hpf (NONE-FEW) Urine Hyaline Casts None/lpf (NONE) Urine Granular Casts None seen (NONE SEEN) Urine Waxy Casts None seen (NONE SEEN) Urine Red Blood Cell Casts None seen (NONE SEEN) Urine White Blood Cell Casts None seen (NONE SEEN) Urine Mucus None seen (None Seen) Urine Trichomonas None seen (NONE SEEN) Urine Yeast None (NONE SEEN) Urinalysis Comment None Urine Culture Reflexed Not indicated ECG Interpretation ECG Interpretation: Sinus rhythm with a rate of 73, single atrial premature complex. Negative for ischemic changes. Time: 14:41 Interpreted by: ED physician (Dr. West) CT Head Interpretation PROCEDURE: CT BRAIN WITHOUT CONTRAST ([id number]) INDICATIONS: Stroke IMPRESSION: Mild microvascular atherosclerotic change in the deep white matter of each hemisphere, expected for age. No sign of stroke identified. Interpretation / Wet Read by: Interpret - Radiologist Re-Eval/Medical Decision Med Decision/Clinical Course 86-year-old female with a history of [place], CVA, DM presenting the emergency department with a chief complaint of dizziness. Patient is a somewhat difficult historian and provides varying accounts a different providers. Essentially complaint of brief episode of dizziness, possibly vertiginous, this morning sometime after rising from bed. Denies other neurologic symptoms. Noted elevated blood glucose at that time and attributes her symptoms to this. Refer to emergency by her primary care provider. Jerad presentation. Physical examination reveals a generally well-appearing patient. Her NIH scale reveals some deficits which she reports are baseline and due to her previous CVA. Otherwise benign examination. Normal vitals. Glucose initially in the low 200s. Noncontrast CT of the brain is ordered after consultation with Dr. West , as well as CBC, CMP, troponin, EKG. All of these are reassuring. Glucose is 142. Dr. West met with and examined the patient. She reports her symptoms have resolved. Discussed the possibility that her symptoms were caused by a transient ischemic attack and offered hospitalization which the patient declines. Risks are discussed and acknowledged. Advised regarding primary care follow-up, provided emergency return precautions. Patient verbalized understanding of, and consent to, the plan. Patient Discharge & Departure Impression: Primary Impression: Dizziness Disposition: Home Discharge Condition All VS Reviewed: Yes Condition: Stable Patient Instructions: Dizziness (ED) Additional Instructions: Evaluation in the emergency department for dizziness include interview, physical examination lab tests, EKG and CT scan all of which are reassuring that this is not caused by an immediately dangerous condition such as heart attack or stroke. We cannot say definitively that you did not suffer a transient ischemic attack, which is a temporary stroke. You have declined to remain in the hospital for further investigation. We have discussed the risks and we will respect your wishes. We recommend taking 1 baby aspirin daily to reduce the risk of future events. Please follow up with your primary care provider tomorrow for further evaluation. Return to the emergency department for any new or worsening symptoms including change in your vision, speech, balance, weakness or numbness. Referrals: Swathi Rangel (PCP) EDSupervising Provider for APC: Shay West MD Attending Statement I discussed case with OSEI Dash evaluated the patient independently and agree with plan as above. In brief, 86-year-old female presenting with dizziness earlier today. She reports her blood sugar was in the high 300s when this occurred. By the time she arrived her blood sugar was in the 200s and her symptoms completely resolved by the time of my evaluation. She had no other associated symptoms. She did report that the room was spinning with her dizziness. She had a CT scan which showed no acute pathology. She has no focal neuro deficits on my exam. Her labs are unremarkable. Most likely due to vertigo versus hyperglycemia. Cannot completely rule out TIA I counseled the patient extensively regarding this possibility and she requests to go home understanding that this does increase her risk of stroke and risk of possibility of if she goes home but she accepts this risk. Discharged home and return precautions follow-up with primary doctor. Swathi Rangel Seth PA-C Jun 07, 2017 13:40 Shay West MD Jun 08, 2017 10:17
[2017-06-07 13:41] VITALS: BP 111/55; PULSE 70; RESP 20; O2SAT 92
--- NOTE | 2017-06-07 14:27 | DRSVH ---
PROCEDURE: CT BRAIN WITHOUT CONTRAST ([id number]) INDICATIONS: Stroke TECHNIQUE: Noncontrast 4.5 mm thick angled axial sections acquired from the foramen magnum to the vertex, with c oronal reformats. COMPARISON: [facility] , CT, BRAIN W/O CONTRAST, 08/21/2010, 16:57. FINDINGS: Image quality: Excellent. CSF spaces: Basal cisterns are patent. No extra-axial fluid collections. The ventricles are symmet edmond in size and shape. Brain: No intracranial bleeds or masses. There is cerebral volume loss for age, with resultant vent ricular and sulcal prominence. There are periventricular and deep white matter chronic small vessel ischemic changes. There is intracranial internal carotid artery atherosclerosis. Skull and face: Calvarium and visualized facial bones appear intact, without suspicious lesions. Sinuses: Visualized sinuses and mastoids are clear. IMPRESSION: Mild microvascular atherosclerotic change in the deep white matter of each hemisphere, ex pected for age. No sign of stroke identified. Dictated by: Isaiah Collins M.D. on 06/07/2017 at 14:25 Approved by: Isaiah Collins M.D. on 06/07/2017 at 14:26
[2017-06-07 15:22] LABS: BASOPHILS % (AUTO) 0.2 % (0-3); EOSINOPHILS % (AUTO) 0.5 % (0-5); MONOCYTES % (AUTO) 18.8 % (4-12); Mean Corpuscular Hemoglobin 35.6 pg (27.0-35.0); Mean Corpuscular Volume 106.5 fL (81-100); NEUTROPHILS % (AUTO) 48.8 % (40-74); Platelet Count 116 bil/L (150-400)
[2017-06-07 16:02] LABS: APPEARANCE,URINE CLEAR (CLEAR,HAZY); COLOR,URINE YELLOW (YELLOW); OCCULT BLOOD,URINE NEGATIVE (NEGATIVE); PH,URINE 5.5 (5.0-8.0); UROBILINOGEN,URINE NORMAL (NORMAL)
[2017-06-07 16:17] LABS: TROPONIN T < 0.010 ug/L (0.0-0.011)
[2017-06-07 17:11] VITALS: BP 125/59; PULSE 74; RESP 20; O2SAT 96
== END 2017-06-07 17:00 | disposition home or self-care (01) ==
LOC: SED 12:25
DX: R42 Dizziness and giddiness (principal); R51 Headache; I10 Essential (primary) hypertension; I48.0 Paroxysmal atrial fibrillation; I25.2 Old myocardial infarction; E78.5 Hyperlipidemia, unspecified; E11.59 Type 2 diabetes mellitus with other circulatory complications; F32.9 Major depressive disorder, single episode, unspecified; I25.10 Atherosclerotic heart disease of native coronary artery without angina pectoris; E11.40 Type 2 diabetes mellitus with diabetic neuropathy, unspecified; Z90.710 Acquired absence of both cervix and uterus; Z86.73 Personal history of transient ischemic attack (TIA), and cerebral infarction without residual deficits; Z95.5 Presence of coronary angioplasty implant and graft; Z95.1 Presence of aortocoronary bypass graft; Z87.891 Personal history of nicotine dependence; Z79.84 Long term (current) use of oral hypoglycemic drugs; Z79.4 Long term (current) use of insulin; Z88.0 Allergy status to penicillin; Z88.8 Allergy status to other drugs, medicaments and biological substances; Z91.030 Bee allergy status